=== PATIENT | female | born 1995 ===

== ENCOUNTER → 2019-05-07 | Outpatient (CLI) | payer OTHER | LOC: LAB 12:54 → LAB SHORT 12:54 | PROVIDERS: Registered Nurse Community Health | DX: Z01.419 Encounter for gynecological examination (general) (routine) without abnormal findings (principal); Z12.4 Encounter for screening for malignant neoplasm of cervix | CPT/HCPCS: G0123 ==

== ENCOUNTER → 2020-05-18 | Outpatient (CLI) | payer OTHER ==
[2020-05-18 19:36] LABS: Source, Urine Clean Catch
[2020-05-18 20:03] LABS: Appearance, Urine Clear (Clear); Bilirubin, Urine Neg (Neg); Blood, Urine Neg (Neg); Color, Urine Yellow (P-Yellow); Glucose Qualitative, Urine Neg (Neg); Ketones, Urine Neg (Neg); Leukocyte Esterase, Urine 1+ (Neg); Nitrite, Urine Neg (Neg); Protein, Urine Neg (Neg); Urobilinogen, Urine NORM (Normal)
[2020-05-18 20:12] LABS: Bacteria Few /hpf; Red Blood Cells, Urine 0-2 /hpf (0-2); Squamous Epithelial Cells Few /hpf (Few)
== END ==
LOC: LAB 19:34 → LAB SHORT 19:34
PROVIDERS: Registered Nurse Community Health
DX: Z34.90 Encounter for supervision of normal pregnancy, unspecified, unspecified trimester (principal)
CPT/HCPCS: 81001; 87086

== ENCOUNTER 2020-11-21 18:06 | Inpatient (IN) | payer OTHER ==
[~2020-11-21] VITALS: Ht 160 cm; Wt 70.0 kg
[2020-11-21 18:52] LABS: BASOPHILS ABSOLUTE AUTO 0.04 K/mm3 (0.00-0.23); BASOPHILS PERCENT AUTO 0 % (0-2); EOSINOPHILS ABSOLUTE AUTO 0.05 K/mm3 (0.00-0.68); EOSINOPHILS PERCENT AUTO 0 % (0-6); Hematocrit 31.3 % (33.0-51.0); Hemoglobin 11.2 g/dL (11.5-16.0); IMMATURE GRAN ABSOLUTE AUTO 0.06 K/mm3 (0.00-0.10); IMMATURE GRAN PERCENT AUTO 0 % (0-1); LYMPHOCYTES ABSOLUTE AUTO 1.81 K/mm3 (0.84-5.20); LYMPHOCYTES PERCENT AUTO 10 % (21-46); MONOCYTES ABSOLUTE AUTO 0.97 K/mm3 (0.16-1.47); MONOCYTES PERCENT AUTO 5 % (4-13); Mean Corpuscular HGB 32.7 pg (26.0-34.0); Mean Corpuscular HGB Conc 35.8 g/dL (31.5-36.5); Mean Corpuscular Volume 92 fL (80-100); Mean Platelet Volume 11.1 fL (9.1-12.4); NEUTROPHILS ABSOLUTE AUTO 15.36 K/mm3 (1.96-9.15); NEUTROPHILS PERCENT AUTO 84 % (41-73); Platelet Count 300 K/mm3 (150-400); RDW Standard Deviation 40.3 fL (35.1-46.3); Red Blood Cell Count 3.42 M/mm3 (3.80-5.20); White Blood Cell Count 18.29 K/mm3 (4.00-11.30)
[2020-11-21] MEDS ORDERED: PRENATAL TABLE1 EAC2 PO (18:57)
[2020-11-21 19:38] LABS: SARS-Cov-2 (COVID-19) PCR, MMC NEGATIVE (NEGATIVE)
[2020-11-21 20:38] LABS: PCO2 Cord - Arterial 63.3 mmHg (40-50); PO2 Cord - Arterial < 13 mmHg (16-20); pH Cord - Arterial 7.29 (7.28-7.35)
--- NOTE | 2020-11-21 20:39 | NUR ---
11/21/202038 Oneyda Gordon VIABLE BABY GIRL BORN AT 2024. CORD BLOOD GIVEN TO OB RN. CORD SEGMENT GIVEN TO RT. [place] PLACED PRIOR TO PREP AND DRAPPING. BABY FATER IN ROOM FOR PROCEDURE.
[2020-11-21 20:40] LABS: PCO2 Cord - Venous 48.6 mmHg (40-50); PO2 Cord - Venous 21.7 mmHg (28-32); pH Umbilical Cord - Venous 7.36 (7.26-7.35)
[2020-11-22 05:18] LABS: BASOPHILS ABSOLUTE AUTO 0.06 K/mm3 (0.00-0.23); BASOPHILS PERCENT AUTO 0 % (0-2); EOSINOPHILS PERCENT AUTO 0 % (0-6); Hematocrit 28.8 % (33.0-51.0); Hemoglobin 10.4 g/dL (11.5-16.0); IMMATURE GRAN ABSOLUTE AUTO 0.15 K/mm3 (0.00-0.10); IMMATURE GRAN PERCENT AUTO 1 % (0-1); LYMPHOCYTES ABSOLUTE AUTO 1.06 K/mm3 (0.84-5.20); LYMPHOCYTES PERCENT AUTO 4 % (21-46); MONOCYTES ABSOLUTE AUTO 0.81 K/mm3 (0.16-1.47); MONOCYTES PERCENT AUTO 3 % (4-13); Mean Corpuscular HGB 33.3 pg (26.0-34.0); Mean Corpuscular HGB Conc 36.1 g/dL (31.5-36.5); Mean Corpuscular Volume 92 fL (80-100); Mean Platelet Volume 11.1 fL (9.1-12.4); NEUTROPHILS ABSOLUTE AUTO 26.15 K/mm3 (1.96-9.15); NEUTROPHILS PERCENT AUTO 93 % (41-73); Platelet Count 304 K/mm3 (150-400); RDW Coefficient Variation 12.1 % (11.7-14.2); RDW Standard Deviation 40.9 fL (35.1-46.3); Red Blood Cell Count 3.12 M/mm3 (3.80-5.20); White Blood Cell Count 28.23 K/mm3 (4.00-11.30)
--- NOTE | 2020-11-23 12:12 | NUR ---
DR. ORTIZ HAD REPORTED SHE HAD BEEN TALKING WITH DR. PALAFOX ABOUT D/C PLAN FOR MOM AND NB. DR. ORTIZ REPORTS HER AND DR. PALAFOX HAVE A PLAN ON D/C FOR MOM AND BABY TODAY. DR. ORTIZ STATES SHE WILL COME SEE MOM TO DISCUSS D/C AND WRITE SCRIPTS.
[2020-11-23] MEDS ORDERED: DOCU100 PO (12:37)
[2020-11-23] MEDS ORDERED: IBUP800 PO (12:37)
[2020-11-23] MEDS ORDERED: Percocet 5-3251 EACH PO (12:38)
--- NOTE | 2020-11-23 16:10 | NUR ---
D/C HOME WITH NB. CHARTING REVIEWED
--- NOTE | 2020-11-23 16:18 | NUR ---
DISCHARGE INSTRUCTIONS GIVEN, ANSWERED ALL QUESTIONS AND CONCERNS. IV REMOVED. FOLLOW UP APPOINTMENT SCHEDULED FOR 11/24. DISCHARGED HOME, DRIVEN BY SO. ALL PERSONAL BELONGINGS RETURNED.
--- NOTE | 2020-11-30 18:54 | NUR ---
LATE ENTRY UPDATED OR SURGICAL CHECKLIST PER EMR
== END 2020-11-23 16:00 | disposition home or self-care (01) | DRG 786 ==
LOC: OBS 18:06 → BC 18:45
PROVIDERS: ADMIT Family Medicine
PROC: 10D00Z1 Extraction of Products of Conception, Low, Open Approach (ICD-10-PCS; principal; 2020-11-21 19:00)
DX: O34.03 Maternal care for unspecified congenital malformation of uterus, third trimester (principal); O60.14X0 Preterm labor third trimester with preterm delivery third trimester, not applicable or unspecified; Z20.822 Contact with and (suspected) exposure to COVID-19; O32.1XX0 Maternal care for breech presentation, not applicable or unspecified; Z3A.36 36 weeks gestation of pregnancy; Z37.0 Single live birth; Q51.21 Complete doubling of uterus; Q51.3 Bicornate uterus
CPT/HCPCS: 36415; 82803; 85025; 86850; 86900; 86901; 87081; A9270; J0690; J0702; J1100; J1885; J2370; J2405; J2550; J2590; J2765; J3010; J7120; U0004